=== PATIENT | female | born 2000 | race Caucasian/White ===

== ENCOUNTER 2024-09-10 17:54 | Emergency (ER) | payer OTHER ==
[2024-09-10 18:09] VITALS: BP 130/86; PULSE 77; RESP 18; TEMP 98.4; BMI 27.1
[2024-09-10 19:30] LABS: EPI CELLS >36 /uL (0-25.1); HYALINE CASTS 83 /uL (0-3.1); PH,URINE 5.5 (5.0-8.0); URINE APPEARANCE TURBID; URINE BACTERIA >9,000 /uL (0-1359); URINE BILIRUBIN NEGATIVE (NEGATIVE); URINE COLOR YELLOW; URINE GLUCOSE (UA) NEGATIVE (NEGATIVE); URINE KETONE TRACE (NEGATIVE); URINE LEUK ESTERASE 2+ (NEGATIVE); URINE NITRITE NEGATIVE (NEGATIVE); URINE PROTEIN 2+ (NEGATIVE); URINE WBC 8823 /uL (0-25.8)
[2024-09-10] MEDS ORDERED: FLUCONAZOLE 150 MG TABLET PO ONE (19:43)
[2024-09-10] MEDS ORDERED: CEPHALEXIN MONOHYDRATE 500 MG CAPSULE (UD) ONE (19:43)
[2024-09-10] MEDS: FLUCONAZOLE 50 MG TABLET PO ONE (19:45)
[2024-09-10] MEDS: CEPHALEXIN MONOHYDRATE 500 MG CAPSULE (UD) PO ONE (19:45)
[2024-09-10 21:54] LABS: URINE RBC 135.4 /uL (0-23.9)
== END 2024-09-10 20:03 | disposition home or self-care (01) ==
LOC: JER 17:54 → JERFT 17:54
DX: N30.01 Acute cystitis with hematuria (principal); B37.31 Acute candidiasis of vulva and vagina; R30.0 Dysuria
CPT/HCPCS: 81003; 87070; 87205; 99283-25